=== PATIENT | female | born 1980 | race Caucasian/White ===

== ENCOUNTER 2019-09-15 15:48 | Outpatient (CLI) | payer BC ==
--- NOTE | 2019-09-15 16:41 | ULT ---
PELVIS ULTRASOUND: INDICATIONS: Menorrhagia. Irregular menses. TECHNIQUE: Transabdominal and endovaginal ultrasound of the pelvis is performed. FINDINGS: The uterus is mildly prominent in size and heterogeneous. The uterus is measured at 10.7 x 4.3 x 5.6 cm. The endometrial stripe is upper normal, measured at 1 cm. Neither ovary is identified. IMPRESSION: 1. Mildly enlarged and heterogeneous uterus. There is an echogenic area which may represent a small f ibroid. I cannot exclude other fibroids although they are not well delineated. The endometrium is mil dly prominent. 2. Neither ovary is identified by ultrasound. Consider MRI of pelvis to evaluate the uterus and the ovaries if indicated. POS: OFF
== END 2019-09-15 15:49 | disposition home or self-care (01) ==
LOC: SCSULT 15:48
PROVIDERS: ATTEND Family Medicine
DX: N92.1 Excessive and frequent menstruation with irregular cycle (principal); N94.6 Dysmenorrhea, unspecified; N85.2 Hypertrophy of uterus
CPT/HCPCS: 76856